=== PATIENT | male | born 1990 | race Caucasian/White ===

== ENCOUNTER 2018-12-24 06:33 | Emergency (ER) | payer OTHER ==
[~2018-12-24] VITALS: Ht 185.4 cm; Wt 179.5 kg
[2018-12-24 06:39] VITALS: Ht 185.4 cm; Wt 179.5 kg
[2018-12-24] MEDS ORDERED: LEVO-T125 MCG PO (06:41)
[2018-12-24] MEDS ORDERED: ZANTAC300 MG PO (06:41)
[2018-12-24] MEDS ORDERED: VANCOCIN HCL250 MG PO (06:42)
[2018-12-24 07:25] LABS: BASOPHILS 0.6 % (0-2); EOSINOPHILS 11.1 % (0-7); HEMATOCRIT 49.3 % (42.0-54.0); HEMOGLOBIN 17.5 g/dL (13.5-17.5); IMMATURE GRANULOCYTES 0.4 % (0-5); MCH 29.6 pg (26.0-34.0); MCHC 35.5 g/dL (31.0-37.0); MCV 83.4 fL (80.0-100.0); MEAN PLATELET VOLUME 11.3 fL (7.4-10.4); MONOCYTES 5.2 % (2-11); NEUTROPHILS 65.7 % (40-80); PLATELET COUNT 236 10x3/uL (130-400); RBC 5.91 10x6/uL (4.20-6.10); RDW 15.2 % (11.5-14.5); WBC 13.6 10x3/uL (4.8-10.8)
[2018-12-24 07:41] LABS: ALBUMIN 3.6 g/dL (3.4-5.0); ALKALINE PHOSPHATASE 76 U/L (46-116); ALT (SGPT) 74 U/L (10-68); CALC OSMOLALITY 277 mosm/kg (275-300); CALCIUM 8.9 mg/dL (8.5-10.1); CARBON DIOXIDE 26.8 mmol/L (21.0-32.0); CHLORIDE - SERUM 104 mmol/L (98-107); GLUCOSE 123 mg/dL (74-106); POTASSIUM - SERUM 3.7 mmol/L (3.5-5.1); PROTEIN - SERUM 8.1 g/dL (6.4-8.2); SODIUM 140 mmol/L (136-145); UREA NITROGEN 7 mg/dL (7-18); eGFR NON AFRICAN AMERICAN > 90 mL/min (90-120)
--- NOTE | 2018-12-24 07:41 | NUR ---
DR. OBRIEN NOTIFIED AND REVIEWED PTS'S BEHAVIOR AND ASSESSMENTS RESULTS. PT IS A LOW RISK PER DR. OBRIEN. DR. OBRIEN STATED TO GIVE RESOURCES TO PT AT THE TIME OF DISCHARGE. NO FURTHER ORDERS AT THIS TIME. RESOURCES REVIWED WITH PT AND HE VERBALIZIED UNDERSTANDING.
[2018-12-24 07:50] LABS: LIPASE 191 U/L (73-393); MAGNESIUM - SERUM 2.2 mg/dL (1.8-2.4)
[2018-12-24 07:52] LABS: THYROID STIMULATING HORMONE 51.79 uIU/mL (0.36-3.74)
[2018-12-24 09:37] VITALS: BP 119/80
== END 2018-12-24 09:32 | disposition home or self-care (01) ==
LOC: D.ER 06:33
PROVIDERS: Emergency Medicine
DX: A04.72 Enterocolitis due to Clostridium difficile, not specified as recurrent (principal); E03.9 Hypothyroidism, unspecified